=== PATIENT | female | born 1990 | race Caucasian/White ===

== ENCOUNTER → 2020-03-25 15:51 | Observation (INO) ==
[2020-03-25 13:41] VITALS: BP 111/74
== END | disposition home or self-care (01) ==
LOC: 1NENULAB
PROVIDERS: ADMIT Obstetrics & Gynecology; ATTEND Obstetrics & Gynecology

== ENCOUNTER → 2020-03-30 20:08 | Observation (INO) | END | disposition home or self-care (01) | LOC: 1NENULAB | PROVIDERS: ADMIT Student in an Organized Health Care Education/Training Program; ATTEND Student in an Organized Health Care Education/Training Program ==

== ENCOUNTER 2020-04-01 12:14 | Inpatient (IN) ==
[~2020-04-01 12:14] MED LIST: *HR* FentaNYL (PF) 100 MCG/2 ML VIAL IVP PRN; Azithromycin 500 MG in 0.9 % Sodium Chloride 250 ML IVPB ONE; Famotidine 20 MG/2 ML VIAL IVP PRN; Lidocaine 1% 20 ML MDV INFILT PRN; Metoclopramide 10 MG/2 ML VIAL IVP PRN; Naloxone 0.4 MG/ML INJ IVP PRN; Ondansetron 4 MG/2 ML VIAL IVP PRN
[2020-04-01] MEDS ORDERED: Ringers Solution, Lactated 1,000 ML IVC SCH (12:15)
[2020-04-01 12:39] LABS: Basophils % 0.1 %; Eosinophils % 0.2 %; Hematocrit 37.1 % (35.3-44.9); Hemoglobin 11.8 g/dL (11.5-15.4); Immature Granulocytes % 0.8 % (0-4); Lymphocytes # 2.6 K/mcL (0.6-4.6); Mean Corpuscular HGB Conc 31.8 g/dL (31.6-35.5); Mean Corpuscular Hemoglobin 27.8 pg (28.0-33.3); Mean Corpuscular Volume 87.5 fL (83.0-100.0); Mean Platelet Volume 12.1 fL (9.4-12.4); Monocytes # 0.8 K/mcL (0.0-1.3); Monocytes % 4.8 %; Neutrophils # 13.8 K/mcL (1.6-8.9); Platelet Count 230 K/mcL (140-400); Red Blood Count 4.24 M/mcL (3.82-4.97); Red Cell Distribution Width 14.4 % (11.5-14.5); Segmented Neutrophils % 79.1 %; White Blood Count 17.5 K/mcL (4.3-11.1)
[2020-04-01 12:51] LABS: INR 0.9; Prothrombin Time 10.3 Seconds (9.4-12.1)
[2020-04-01 12:54] LABS: Activated Partial Thrombo Time 26.6 Seconds (26.0-36.0)
[2020-04-01] MEDS ORDERED: Penicillin G Potassium 5,000,000 UNIT in 0.9 % Sodium Chloride Mini Bag 100 ML IVPB ONE (13:05)
[2020-04-01 13:15] LABS: Glucose 94 mg/dL (70-105)
[2020-04-01] MEDS ORDERED: Oxytocin 20 units/ LR 1000 mL 20 UNIT/1,000 ML BAG IVC SCH ×2 (13:15→23:25)
[2020-04-01 15:02] LABS: Protein/Creatinine Ratio,Urine 0.28 mg/mg (0.00-0.20)
[2020-04-01] MEDS ORDERED: Penicillin G Potassium 2,500,000 UNIT/105 ML UNIT IVPB SCH (16:00)
[2020-04-01 16:10] LABS: Amphetamine Screen,Urine Negative ng/mL (Cutoff=1000); Barbiturate Screen,Urine Negative ng/mL (Cutoff=200); Benzodiazepines Screen,Urine Negative ng/mL (Cutoff=200); Cannabinoid Screen,Urine Negative ng/mL (Cutoff = 50); Cocaine Screen,Urine Negative ng/mL (Cutoff= 300); Opiate Screen,Urine Negative ng/mL (Cutoff=300); Phencyclidine Screen,Urine Negative ng/mL (Cutoff=25)
[2020-04-01 16:32] LABS: Alanine Aminotransferase 6 Units/L (7-52); Aspartate Amino Transferase 10 Units/L (13-39); BUN/Creatinine Ratio 8 (6-26); Blood Urea Nitrogen 5 mg/dL (6-20); Lactate Dehydrogenase 147 Units/L (140-271); Uric Acid 5.3 mg/dL (2.3-7.6); eGFR For African Americans > 60 (> 60); eGFR For Non-African Americans > 60 (> 60)
[2020-04-01] MEDS ORDERED: Ketorolac 30 MG/ML VIAL IVP ONE (21:30)
[2020-04-01] MEDS ORDERED: Benzocaine/Menthol 56 GM AEROSOL SPRAY TP PRN (23:25)
[2020-04-01] MEDS ORDERED: Rho Immune Globulin 1,500 UNIT SYRINGE IM PRN (23:25)
[2020-04-01] MEDS ORDERED: Measles/Mumps/Rubella Vacc 0.5 ML VIAL SQ PRN (23:25)
[2020-04-01] MEDS ORDERED: Lanolin 7 G OINT...G. TP PRN (23:25)
[2020-04-02] MEDS: Acetaminophen 325 MG TABLET PO SCH ×2 (00:36→08:32)
[2020-04-02] MEDS ORDERED: Ketorolac 30 MG/ML VIAL IVP ONE (03:30)
[2020-04-02] MEDS: Ibuprofen 600 MG TABLET PO SCH ×2 (03:31→12:37)
[2020-04-02 07:54] VITALS: BP 114/83
[2020-04-02] MEDS ORDERED: Prenatal Vit/FA 1 EACH TABLET PO SCH (09:00)
== END 2020-04-02 14:37 | disposition home or self-care (01) | DRG 560 ==
LOC: 1NENULAB → 1NENUOBS 22:59
PROVIDERS: ADMIT Obstetrics & Gynecology; ATTEND Obstetrics & Gynecology

== ENCOUNTER → 2022-06-26 23:35 | Observation (INO) ==
[2022-06-26 23:35] LABS: Bacteria,Urine Few per hpf (None-Few); Bilirubin,Urine Small (Negative); Blood,Urine Negative (Negative); Clarity,Urine Ex.Turbid (Clear); Color,Urine Yellow (Yellow); Glucose,Urine (UA) Normal (Normal); Ketones,Urine Trace mg/dL (Negative); Leukocyte Esterase,Urine Large (Negative); Mucus,Urine Many per lpf (None-Few); Nitrite,Urine Negative (Negative); PH,Urine 6.5 pH Units (5.0-8.0); Protein,Urine 100 mg/dL (Neg-Trace); RBC,Urine 30-50 per hpf (0-3); Specific Gravity,Urine > 1.030 (1.010-1.025); Squamous Epithelial Cell,Urine Many per hpf (None-Few); Urobilinogen,Urine >=8.0 mg/dL (Normal); WBC,Urine TNTC per hpf (0-3)
[2022-06-27 00:25] LABS: Candida DNA Not Detected (Not Detect); Gardnerella DNA Not Detected (Not Detect); Trichomonas DNA Not Detected (Not Detect)
== END | disposition home or self-care (01) ==
LOC: 1NENULAB
PROVIDERS: ADMIT Registered Nurse; ATTEND Registered Nurse

== ENCOUNTER 2022-07-07 04:00 | Inpatient (IN) ==
[2022-07-07] MEDS ORDERED: Azithromycin 500 MG in 0.9 % Sodium Chloride 250 ML IVPB PRN (04:35)
[2022-07-07] MEDS ORDERED: Naloxone 0.4 MG/ML INJ IVP PRN (04:35)
[2022-07-07] MEDS ORDERED: Ondansetron 4 MG/2 ML VIAL IVP PRN (04:35)
[2022-07-07] MEDS ORDERED: miSOPROStoL 25 MCG TABLET PO PRN (04:35)
[2022-07-07] MEDS ORDERED: Metoclopramide 10 MG/2 ML VIAL IVP PRN (04:35)
[2022-07-07] MEDS ORDERED: Famotidine 20 MG/2 ML VIAL IVP PRN (04:35)
[2022-07-07] MEDS ORDERED: Lidocaine 1% 20 ML MDV INFILT PRN (04:35)
[2022-07-07] MEDS ORDERED: Ringers Solution, Lactated 1,000 ML IVC SCH (04:45)
[2022-07-07] MEDS ORDERED: D5% in Lactated Ringers 1,000 ML IVC SCH (04:45)
[2022-07-07 05:49] LABS: Basophils % 0.1 %; Eosinophils % 0.2 %; Hematocrit 35.6 % (35.3-44.9); Hemoglobin 11.9 g/dL (11.5-15.4); Immature Granulocytes % 0.7 % (0-4); Lymphocytes # 2.3 K/mcL (0.6-4.6); Mean Corpuscular HGB Conc 33.4 g/dL (31.6-35.5); Mean Corpuscular Hemoglobin 28.7 pg (28.0-33.3); Mean Corpuscular Volume 85.8 fL (83.0-100.0); Mean Platelet Volume 11.3 fL (9.4-12.4); Monocytes # 1.2 K/mcL (0.0-1.3); Monocytes % 6.4 %; Neutrophils # 15.2 K/mcL (1.6-8.9); Platelet Count 246 K/mcL (140-400); Red Blood Count 4.15 M/mcL (3.82-4.97); Red Cell Distribution Width 14.6 % (11.5-14.5); Segmented Neutrophils % 80.6 %; White Blood Count 18.9 K/mcL (4.3-11.1)
[2022-07-07] MEDS ORDERED: Morphine Sulfate 2 MG/ML SYRINGE IVP PRN (09:35)
[2022-07-07] MEDS ORDERED: D5% in 0.45% NACL 1,000 ML IVC SCH (09:45)
[2022-07-07] MEDS ORDERED: Oxytocin 30 UNIT/503 ML BAG IVC SCH (15:30)
[2022-07-07 16:34] LABS: Amphetamine Screen,Urine Negative ng/mL (Cutoff=1000); Barbiturate Screen,Urine Negative ng/mL (Cutoff=200); Benzodiazepines Screen,Urine Negative ng/mL (Cutoff=200); Cannabinoid Screen,Urine Negative ng/mL (Cutoff = 50); Cocaine Screen,Urine Negative ng/mL (Cutoff= 300); Opiate Screen,Urine Negative ng/mL (Cutoff=300); Phencyclidine Screen,Urine Negative ng/mL (Cutoff=25)
[2022-07-08] MEDS ORDERED: Lanolin 7 G OINT...G. TP PRN (00:38)
[2022-07-08] MEDS ORDERED: NON-FORMULARY MEDICATION 1 EACH EACH (Breast Pump [Breast Pump] 1 EACH Each) SCH (00:38)
[2022-07-08] MEDS ORDERED: *HR* Enoxaparin 40 MG/0.4 ML SYRINGE SQ ONE (00:38)
[2022-07-08] MEDS ORDERED: Ondansetron ODT 4 MG TAB.RAPDIS SL PRN (00:38)
[2022-07-08] MEDS ORDERED: Rho Immune Globulin 1,500 UNIT SYRINGE IM PRN (00:38)
[2022-07-08] MEDS ORDERED: Oxytocin 30 UNIT/503 ML BAG IVC SCH (00:38)
[2022-07-08] MEDS: Acetaminophen 325 MG TABLET PO SCH ×3 (01:41→16:58)
[2022-07-08] MEDS: Ibuprofen 400 MG TABLET PO SCH ×3 (01:42→16:58)
[2022-07-08] MEDS: Benzocaine/Menthol 56 GM AEROSOL SPRAY TP PRN ×2 (02:51→09:57)
[2022-07-08 03:03] VITALS: O2SAT 98
[2022-07-08] MEDS ORDERED: Prenatal Vit/FA 1 EACH TABLET PO SCH (09:00)
[2022-07-08 16:01] VITALS: BP 104/71; PULSE 95; TEMP 97.7
[2022-07-08] MEDS ORDERED: Sennosides 8.6 MG TABLET PO SCH (21:00)
== END 2022-07-08 23:22 | disposition home or self-care (01) | DRG 560 ==
LOC: 1NENULAB 04:18 → 1NENUOBS 07-08 00:39
PROVIDERS: ADMIT Student in an Organized Health Care Education/Training Program; ATTEND Student in an Organized Health Care Education/Training Program